=== PATIENT | female | born 1935 | race Caucasian/White ===

== ENCOUNTER 2016-12-19 14:54 | Emergency (ER) | payer MEDICARE, BC ==
[~2016-12-19] VITALS: Ht 165.1 cm; Wt 52.5 kg
[~2016-12-19 14:54] MED LIST: CALC-179 OR
[2016-12-19 14:56] VITALS: BP 196/86; PULSE 85; RESP 18; TEMP 98.6; O2SAT 99
--- NOTE | 2016-12-19 15:34 | RADRPT ---
EXAM DATE/TIME: 12/19/2016 15:15 [place] COMPARISON: No previous studies available for comparison. INDICATIONS : Fell today. MEDICAL HISTORY : broken femur in 2007 SURGICAL HISTORY : left femur surgery. ENCOUNTER: Initial ACUITY: 1 day PAIN SCORE: 8/10 LOCATION: Left knee FINDINGS: Four view examination of the left knee demonstrates no evidence of acute fracture or dislocation. Rem ote fracture distal femur. Mild osteoarthritis of the knee. Soft tissue swelling. CONCLUSION: Old fracture distal femur. No acute fracture. Edward Burgos MD on December 19, 2016 at 15:31 Board Certified Radiologist. This report was verified electronically.
--- NOTE | 2016-12-19 16:06 | PD ---
HPI Chief Complaint: Injury Time Seen by Provider: 15:59 Travel History International Travel<30 days: No Contact w/Intl Traveler<30days: No Traveled to known affect area: No History of Present Illness HPI 81-year-old female here for evaluation of left knee pain. She reports that she tripped in the sidewalk at noon today and landed on her knees. Since then she has had pain primarily in the anterior left knee. She has slight pain in her anterior right knee as well. Pain is mild, aching, aggravated by movement. Her last tetanus vaccination is unknown. She has no other complaints. 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) Past Surgical History Appendectomy: Yes Gynecologic Surgery: Yes (HYSTERECTOMY) Hysterectomy: Yes Social History Alcohol Use: Yes (WINE ONCE A WEEK) Tobacco Use: No Substance Use: No Allergies-Medications (Allergen,Severity, Reaction): Coded Allergies: Sulfa (Sulfonamide Antibiotics) (Unverified Allergy, Severe, 12/19/16) Reported Meds & Prescriptions Reported Meds & Active Scripts Active Review of Systems Except as stated in HPI: all other systems reviewed are Neg Musculoskeletal: Positive: Pain, No: Limited ROM Skin: Positive Other (positive for abrasions) Physical Exam Narrative GENERAL: Well-nourished female in no acute distress SKIN: Warm and dry. Abrasions noted to bilateral knees anteriorly, left greater than right. Mild tenderness to palpation to the anterior left knee and right knee. HEAD: Atraumatic. Normocephalic. EYES: Pupils equal and round. No scleral icterus. No injection or drainage. ENT: No nasal bleeding or discharge. Mucous membranes pink and moist. NECK: Trachea midline. No JVD. CARDIOVASCULAR: Regular rate and rhythm. No murmur appreciated. RESPIRATORY: No accessory muscle use. Clear to auscultation. Breath sounds equal bilaterally. MUSCULOSKELETAL: Skin as noted above with no joint effusion, no bursitis, no bony deformity. There is pain with flexion and extension of the knees. NEUROLOGICAL: Awake and alert. No obvious cranial nerve deficits. Motor grossly within normal limits. Normal speech. Data Data Last Documented VS Vital Signs Date Time Temp Pulse Resp B/P (MAP) Pulse Ox O2 Delivery O2 Flow Rate FiO2 12/19/16 14:56 98.6 85 18 196/86 (122) 99 Room Air Orders Orders Knee, Complete (4vws) (12/19/16 ) Tetanus/Diphtheria Tox Adult (Tetanus/Di (12/19/16 16:15) Ed Discharge Order (12/19/16 16:16) MDM Medical Decision Making Medical Screen Exam Complete: Yes Emergency Medical Condition: Yes Medical Record Reviewed: Yes Differential Diagnosis Fracture, contusion, bursitis, strain, ligamentous disruption Narrative Course X-ray imaging of the left knee reveals CONCLUSION: Old fracture distal femur. No acute fracture. This is consistent with her history. She appears to have bilateral knee contusions. She is stable for discharge. Diagnosis Primary Impression: Knee contusion Qualified Codes: S80.00XA - Contusion of unspecified knee, initial encounter Additional Instructions: Ice the affected area several times a day 20 minutes at a time. Tylenol or Motrin for discomfort. Return for any emergent medical conditions. Med/Other Pt SpecificInfo: No Change to Meds Disposition: 01 DISCHARGE HOME Condition: Stable Arsh Maciel Dec 19, 2016 16:06
[2016-12-19] MEDS ORDERED: TETANUS/DIPHTHERIA TOXOID ADULT 0.5 ML VIAL IM ONE (16:15)
== END 2016-12-19 16:40 | disposition home or self-care (01) ==
LOC: NEPK 14:54
DX: S80.02XA Contusion of left knee, initial encounter (principal); S80.01XA Contusion of right knee, initial encounter; W01.0XXA Fall on same level from slipping, tripping and stumbling without subsequent striking against object, initial encounter; Y93.01 Activity, walking, marching and hiking; Y92.480 Sidewalk as the place of occurrence of the external cause; M81.0 Age-related osteoporosis without current pathological fracture; Z23 Encounter for immunization
CPT/HCPCS: 73564; 90471; 90714